=== PATIENT | female | born 1990 | race Caucasian/White ===

== ENCOUNTER 2016-10-13 09:22 | Emergency (ER) | payer MEDICAID, OTHER ==
[~2016-10-13] VITALS: Ht 162.6 cm; Wt 80.0 kg
[~2016-10-13 09:22] MED LIST: CYCL-36 PO; NAPR-576 PO
[2016-10-13 09:23] VITALS: BP 177/103; PULSE 110; RESP 20; TEMP 98.2; O2SAT 98
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
[2016-10-13] MEDS ORDERED: IBUPROFEN 800 MG TAB PO ONE (10:15)
[2016-10-13] MEDS ORDERED: IBUP800T23 PO (10:15)
[2016-10-13] MEDS ORDERED: CYCL1TAB29 PO (10:15)
[2016-10-13] MEDS ORDERED: CYCLOBENZAPRINE HCL 10 MG TAB PO ONE (10:15)
[2016-10-13 10:46] VITALS: BP 140/92; PULSE 87; RESP 16; O2SAT 99
== END 2016-10-13 10:51 | disposition home or self-care (01) ==
LOC: NEPB 09:22
DX: S16.1XXA Strain of muscle, fascia and tendon at neck level, initial encounter (principal); S50.312A Abrasion of left elbow, initial encounter; Y04.0XXA Assault by unarmed brawl or fight, initial encounter
CPT/HCPCS: 99283